=== PATIENT | male | born 1975 | race Two or more races ===

== ENCOUNTER 2019-05-06 06:59 | Inpatient (IN) | payer OTHER ==
--- NOTE | 2019-05-06 07:22 | PDOC ---
History of Present Illness - General Chief Complaint: Chest Pain Stated Complaint: PAIN Time Seen by Provider: 05/06/19 07:20 - History of Present Illness Initial Comments: 05/06/19 08:16 44y.o M hx of HIV and Asthma presents to the ED with 2wks of right sided chest pain. He was seen at [facility] at the time and was advised to proceed to the ED for further evaluation and imaging which he did not do. He has also been non- compliant with anti-viral medications. last time he took any medications was 1 month ago. Presenting today, because pain worsened over the last 4 days. Pain is described as squeezing 10/10 pain in his right chest spreading down his right upper arm. Exacerbated by moving his arm or lying on the affected side. He endorses cough productive of white phlegm, night sweats. He denies any hemoptysis, long travel,pleuritic chest pain, unilateral leg swelling, nausea or vomiting. 05/06/19 08:20 Past History - Past Medical History Allergies/Adverse Reactions: Allergies Allergy/AdvReac Type Severity Reaction Status Date / Time No Known Allergies Allergy Verified 05/06/19 07:15 Home Medications: Ambulatory Orders Albuterol Sulfate Inhaler - [Ventolin HFA Inhaler -] 1 - 2 inh PO QID PRN #1 inhaler 04/30/19 Multivitamin,Ther and Minerals [Vitamin and Minerals] 1 each PO DAILY #30 tablet 04/30/19 Acetaminophen [Tylenol .Regular Strength -] 650 mg PO Q6H PRN tablet 05/08/19 Azithromycin [Zithromax] 500 mg PO DAILY #4 tablet 05/08/19 Bictegrav/Emtricit/Tenofov Ala [Biktarvy 50-200-25 mg Tablet] 1 each PO DAILY 30 Days tablet 05/08/19 Cephalexin [Keflex] 500 mg PO BID #8 capsule 05/08/19 Sulfamethoxazole/Trimethoprim [Bactrim DS -] 1 tab PO DAILY #30 tablet 05/08/19 Asthma: No CVA: No COPD: No Diabetes: No Disorders: No HTN: No Hypercholesterolemia: No Psychiatric Problems: Yes (Multiple hospitalizations while incarcerated.) - Immunization History Immunization Up to Date: Yes - Psycho Social/Smoking Cessation Hx Smoking History: Current every day smoker Have you smoked in the past 12 months: Yes Number of Cigarettes Smoked Daily: 3 Cigars Per Day: 0 Information on smoking cessation initiated: Yes Hx Alcohol Use: No Drug/Substance Use Hx: No Substance Use Type: Marijuana Hx Substance Use Treatment: Yes ((+) rehab in intermediate) Review of Systems - Review of Systems Constitutional: Yes: Night Sweats. No: Chills, Fever HEENTM: No: Eye Pain, Blurred Vision Respiratory: No: Cough, Shortness of Breath Cardiac (ROS): Yes: Chest Pain, Chest Tightness ABD/GI: No: Nausea, Vomiting : No: Burning, Dysuria Musculoskeletal: No: Back Pain Integumentary: No: Bruising, Change in Color Neurological: No: Headache, Numbness *Physical Exam - Vital Signs Last Vital Signs Temp Pulse Resp BP Pulse Ox 98.4 F 110 H 18 112/71 100 05/06/19 07:09 05/06/19 07:09 05/06/19 07:09 05/06/19 07:09 05/06/19 07:09 - Physical Exam 05/06/19 08:25 PE: GENERAL: Awake, alert, and fully oriented, in no acute distress HEAD: No signs of trauma, normocephalic, atraumatic EYES: PERRLA, EOMI, sclera anicteric, conjunctiva clear ENT: Auricles normal inspection, hearing grossly normal, nares patent, oropharynx clear without exudates. Moist mucosa NECK: Normal ROM, supple, JVD, or masses LUNGS: No distress, speaks full sentences, decreased breath sounds at lung bases , occasional faint crackles at bases HEART: tachycardic, normal S1 and S2, no murmurs, rubs or gallops, peripheral pulses normal and equal bilaterally. ABDOMEN: Soft, nontender, normoactive bowel sounds. No guarding, no rebound. No masses EXTREMITIES : Normal inspection, Normal range of motion, no edema. No clubbing or cyanosis NEUROLOGICAL: Cranial nerves II through XII grossly intact. Normal speech, normal gait, no focal sensorimotor deficits SKIN: Warm, Dry, normal turgor, no rashes or lesions noted ED Treatment Course - LABORATORY CBC & Chemistry Diagram: 05/08/19 07:05 05/08/19 07:05 Medical Decision Making - Medical Decision Making 05/06/19 08:31 44y.o M hx of HIV and Asthma presents to the ED with 2wks of right sided chest pain. cbc, cmp, troponin, ekg, 05/06/19 09:53 Pt reassesed feeling better will send for Chest Ct also awaiting ID consult. EKG: nsr, incomplete right bundle branch block, left axis deviation 05/06/19 11:57 CXR no evidence of active pulmonary disease no infiltrate, atelactasis, Discharge - Discharge Information Problems reviewed: Yes Clinical Impression/Diagnosis: Human immunodeficiency virus [HIV] disease, AIDS Condition: Improved Disposition: HOME - Follow up/Referral - Patient Discharge Instructions - Post Discharge Activity
[2019-05-06] MEDS ORDERED: SODIUM CHLORIDE 0.9% 500 ML INFUS.BAG IV ONE (07:57)
[2019-05-06] MEDS ORDERED: ACETAMINOPHEN INJECTION 100 ML IVPB ONE (08:14)
[2019-05-06 08:42] LABS: BASO % 0.5 % (0-2.0); EOS % 1.9 % (0-4.5); HEMATOCRIT 35.9 % (35.4-49); LYMPH % 27.3 % (8-40); MCH 30.2 pg (25.7-33.7); MCHC 33.3 g/dl (32.0-35.9); MEAN CELL VOLUME 90.4 fl (80-96); MEAN PLT VOLUME 8.7 fl (7.5-11.1); NEUT % 58.3 % (42.8-82.8); PLATELET COUNT 132 K/MM3 (134-434); RBC 3.97 M/mm3 (4.00-5.60); RDW 15.3 % (11.9-15.9); WHITE BLOOD COUNT 4.7 K/mm3 (4.0-10.0)
--- NOTE | 2019-05-06 09:05 | EKG ---
Test Reason : Blood Pressure : / mmHG Vent. Rate : 085 BPM Atrial Rate : 085 BPM P-R Int : 164 ms QRS Dur : 104 ms QT Int : 370 ms P-R-T Axes : 080 -58 075 degrees QTc Int : 440 ms NORMAL SINUS RHYTHM LEFT AXIS DEVIATION INCOMPLETE RIGHT BUNDLE BRANCH BLOCK ABNORMAL ECG WHEN COMPARED WITH ECG OF 29-APR-2019 13:34, NO SIGNIFICANT CHANGE WAS FOUND Confirmed by Abdullahi Palacios MD ([id number]) on 05/06/2019 9:05:35 AM Referred By: Confirmed By:Abdullahi Palacios MD
[2019-05-06 09:12] LABS: ALBUMIN 2.9 g/dl (3.4-5.0); ALK PHOS 92 U/L (45-117); ANION GAP 6 MMOL/L (8-16); BILIRUBIN,TOTAL 0.3 mg/dL (0.2-1); BLOOD UREA NITROGEN 10.7 mg/dL (7-18); CALCIUM 8.5 mg/dL (8.5-10.1); CHLORIDE 105 mmol/L (98-107); CO2 28 mmol/L (21-32); CREATININE 1.2 mg/dL (0.55-1.3); GLUCOSE,RANDOM 73 mg/dL (74-106); SGOT/AST 24 U/L (15-37); SGPT/ALT 16 U/L (13-61); SODIUM 139 mmol/L (136-145)
--- NOTE | 2019-05-06 09:33 | PDOC ---
Attending Attestation - Resident Resident Name: Ariadna Troy - ED Attending Attestation I have performed the following: I have examined & evaluated the patient, The case was reviewed & discussed with the resident, I agree w/resident's findings & plan - HPI HPI: 05/06/19 09:28 44-year-old male with history of HIV/AIDS known immunosuppressed with last CD4 57 followed at the [facility], obstacles to care include depression in the past now off medication presents with cough and chills with progressive substernal and right-sided chest discomfort, seen at [facility] last week and encouraged to come to the emergency department but refused, EKG at that time was within normal limits but did not follow-up for chest x-ray. Presents now for persistent symptoms. - Physicial Exam PE: 05/06/19 09:29 Tachycardia at triage, but resolved on my examination O2 sat within normal limits, afebrile Seated comfortably in stretcher speaking on his cell phone Oropharynx clear, neck supple Heart is regular without murmur Decreased breath sounds at the right base with some crackles, otherwise good air entry without wheezing Abdomen benign No edema - Medical Decision Making 05/06/19 09:30 44-year-old male immunosuppressed HIV/AIDS with progressive chills and cough and focally decreased breath sounds at the right base, non-compliant with meds. concern for pna v. pcp, no sirs/sepsis at this time. labs, cultures cxr, ekg pain meds dispo accordinly after discussion with [facility] team Heart Score/ECG Review #1 ECG reviewed & interpreted by me at: 07:47 General ECG Interpretation: Sinus Rhythm, Normal Rate (85), Normal Intervals ( qtc 440, irbbb with qrs 104), No acute ischemic changes
[2019-05-06 13:04] LABS: EPI CELLS 2.1 /HPF (0-5/HPF); HYALINE CASTS 2 /lpf (0-8); URINE APPEARANCE CLEAR; URINE BACTERIA 16.3 /hpf (NEGATIVE); URINE BILIRUBIN NEGATIVE (NEGATIVE); URINE COLOR YELLOW; URINE GLUCOSE (UA) NEGATIVE (NEGATIVE); URINE KETONE NEGATIVE (NEGATIVE); URINE LEUK ESTERASE NEGATIVE (NEGATIVE); URINE NITRITE NEGATIVE (NEGATIVE); URINE PROTEIN 2+ (NEGATIVE); URINE RBC 1 /hpf (0-4); URINE WBC 4 /hpf (0-5)
--- NOTE | 2019-05-06 13:20 | HP ---
<Roderick Flores - Last Filed: 05/07/19 04:18> CHIEF COMPLAINT: PCP: HISTORY OF PRESENT ILLNESS: ER course was notable for: (1) (2) (3) Recent Travel: PAST MEDICAL HISTORY: PAST SURGICAL HISTORY: Social History: Smoking: Alcohol: Drugs: Allergies No Known Allergies Allergy (Verified 05/06/19 07:15) HOME MEDICATIONS: Home Medications Medication Instructions Recorded Clotrimazole [Clotrimazole AF] 1 applic TP BID #30 cream..g. 02/21/19 Albuterol Sulfate Inhaler - 1 - 2 inh PO QID PRN #1 inhaler 04/30/19 [Ventolin HFA Inhaler -] Bictegrav/Emtricit/Tenofov Ala 1 each PO DAILY #30 tablet 04/30/19 [Biktarvy 50-200-25 mg Tablet] Multivitamin,Ther and Minerals 1 each PO DAILY #30 tablet 04/30/19 [Vitamin and Minerals] Sulfamethoxazole/Trimethoprim 1 tab PO DAILY #30 tablet 04/30/19 [Bactrim Ds -] REVIEW OF SYSTEMS CONSTITUTIONAL: Absent: fever, chills, diaphoresis, generalized weakness, malaise, loss of appetite, weight change HEENT: Absent: rhinorrhea, nasal congestion, throat pain, throat swelling, difficulty swallowing, mouth swelling, ear pain, eye pain, visual changes CARDIOVASCULAR: Absent: chest pain, syncope, palpitations, irregular heart rate, lightheadedness , peripheral edema RESPIRATORY: Absent: cough, shortness of breath, dyspnea with exertion, orthopnea, wheezing, stridor, hemoptysis GASTROINTESTINAL: Absent: abdominal pain, abdominal distension, nausea, vomiting, diarrhea, constipation, melena, hematochezia GENITOURINARY: Absent: dysuria, frequency, urgency, hesitancy, hematuria, flank pain, genital pain MUSCULOSKELETAL: Absent: myalgia, arthralgia, joint swelling, back pain, neck pain SKIN: Absent: rash, itching, pallor HEMATOLOGIC/IMMUNOLOGIC: Absent: easy bleeding, easy bruising, lymphadenopathy, frequent infections ENDOCRINE: Absent: unexplained weight gain, unexplained weight loss, heat intolerance, cold intolerance NEUROLOGIC: Absent: headache, focal weakness or paresthesias, dizziness, unsteady gait, seizure, mental status changes, bladder or bowel incontinence PSYCHIATRIC: Absent: anxiety, depression, suicidal or homicidal ideation, hallucinations. PHYSICAL EXAMINATION Vital Signs - 24 hr 05/06/19 05/06/19 05/06/19 07:09 15:30 23:04 Temperature 98.4 F 98.8 F 98.3 F Pulse Rate 110 H 77 Pulse Rate [ 72 Left Apical] Respiratory 18 20 17 Rate Blood Pressure 112/71 110/69 Blood Pressure 128/84 [Left Arm] O2 Sat by Pulse 100 97 96 Oximetry (%) 05/07/19 00:00 Temperature 98.6 F Pulse Rate 74 Pulse Rate [ Left Apical] Respiratory 18 Rate Blood Pressure 118/61 Blood Pressure [Left Arm] O2 Sat by Pulse Oximetry (%) GENERAL: Awake, alert, and fully oriented, in no acute distress. HEAD: Normal with no signs of trauma. EYES: Pupils equal, round and reactive to light, extraocular movements intact, sclera anicteric, conjunctiva clear. No lid lag. EARS, NOSE, THROAT: Ears normal, nares patent, oropharynx clear without exudates. Moist mucous membranes. NECK: Normal range of motion, supple without lymphadenopathy, JVD, or masses. LUNGS: Breath sounds equal, clear to auscultation bilaterally. No wheezes, and no crackles. No accessory muscle use. HEART: Regular rate and rhythm, normal S1 and S2 without murmur, rub or gallop. ABDOMEN: Soft, nontender, not distended, normoactive bowel sounds, no guarding, no rebound, no masses. No hepatomegaly or splenomegaly. MUSCULOSKELETAL: Normal range of motion at all joints. No bony deformities or tenderness. No CVA tenderness. UPPER EXTREMITIES: 2+ pulses, warm, well-perfused. No cyanosis. No clubbing. No peripheral edema. LOWER EXTREMITIES: 2+ pulses, warm, well-perfused. No calf tenderness. No peripheral edema. NEUROLOGICAL: Cranial nerves II-XII intact. Normal speech. Normal gait. PSYCHIATRIC: Cooperative. Good eye contact. Appropriate mood and affect. SKIN: Warm, dry, normal turgor, no rashes or lesions noted, normal capillary refill. Laboratory Results - last 24 hr 05/06/19 05/06/19 05/06/19 08:01 08:02 08:02 WBC 4.7 RBC 3.97 L Hgb 12.0 Hct 35.9 MCV 90.4 MCH 30.2 MCHC 33.3 RDW 15.3 Plt Count 132 L MPV 8.7 Absolute Neuts (auto) 2.7 Neutrophils % 58.3 Lymphocytes % 27.3 D Monocytes % 12.0 H Eosinophils % 1.9 Basophils % 0.5 Nucleated RBC % 0 Sodium 139 Potassium 4.0 Chloride 105 Carbon Dioxide 28 Anion Gap 6 L BUN 10.7 Creatinine 1.2 Est GFR (CKD-EPI)AfAm 85.92 Est GFR (CKD-EPI)NonAf 74.14 Random Glucose 73 L Calcium 8.5 Total Bilirubin 0.3 AST 24 ALT 16 Alkaline Phosphatase 92 Troponin I < 0.02 Total Protein 8.0 Albumin 2.9 L Urine Color Urine Appearance Urine pH Ur Specific [place] Urine Protein Urine Glucose (UA) Urine Ketones Urine Blood Urine Nitrite Urine Bilirubin Urine Urobilinogen Ur Leukocyte Esterase Urine WBC (Auto) Urine RBC (Auto) Urine Casts (Auto) U Epithel Cells (Auto) Urine Bacteria (Auto) Influenza A (Rapid) Negative Influenza B (Rapid) Negative 05/06/19 12:45 WBC RBC Hgb Hct MCV MCH MCHC RDW Plt Count MPV Absolute Neuts (auto) Neutrophils % Lymphocytes % Monocytes % Eosinophils % Basophils % Nucleated RBC % Sodium Potassium Chloride Carbon Dioxide Anion Gap BUN Creatinine Est GFR (CKD-EPI)AfAm Est GFR (CKD-EPI)NonAf Random Glucose Calcium Total Bilirubin AST ALT Alkaline Phosphatase Troponin I Total Protein Albumin Urine Color Yellow Urine Appearance Clear Urine pH 7.0 Ur Specific [place] 1.014 Urine Protein 2+ H Urine Glucose (UA) Negative Urine Ketones Negative Urine Blood Negative Urine Nitrite Negative Urine Bilirubin Negative Urine Urobilinogen 1.0 Ur Leukocyte Esterase Negative Urine WBC (Auto) 4 Urine RBC (Auto) 1 Urine Casts (Auto) 2 U Epithel Cells (Auto) 2.1 Urine Bacteria (Auto) 16.3 Influenza A (Rapid) Influenza B (Rapid) ASSESSMENT/PLAN: ATTENDING PHYSICIAN STATEMENT I saw and evaluated the patient. I reviewed the resident's note and discussed the case with the resident. I agree with the resident's findings and plan as documented. SUBJECTIVE: OBJECTIVE: ASSESSMENT AND PLAN: <Aspen Moore - Last Filed: 05/07/19 06:54> Hospitalist medicine Admission 44 y/o M with PMH HIV (noncompliant with Biktarvy, ?on bactrim for PPX, last CD4 count 50's, VL ~700,000), asthma, COPD, who presents to the ED c/w two weeks cough, and chest pain. States the pain is mid-sternal and without radiation. Hurts when he speaks and is a 6/10, dull pain. Pt went to the [place] [facility] to his PMD and was told to come to the ED for further evaluation. Was unable to come in for the past two weeks. Denies other sx; no PEGUERO, fever, chills , SOB or changes in urinary or bowel function. Lives alone. Stopped taking Biktarvy 1 month ago because he needs his mother to help him take it, and she is currently traveling. Denies being rx bactrim for PPX, however listed in [facility] meds. Unsure whether he has had sick contacts, since he works in a [employer]. PMH: as above PsxH: none meds: denies any meds, only Biktarvy allergies: NKDA FH: denies SH: works in a [employer], active smoker 5 cigs/day, used to smoke 1 ppd "for many yrs." denies alcohol or drug use Allergies No Known Allergies Allergy (Verified 05/06/19 07:15) HOME MEDICATIONS: Home Medications Albuterol Sulfate Inhaler - 1 - 2 inh PO QID PRN #1 inhaler 04/30/19 [Ventolin HFA Inhaler -] Bictegrav/Emtricit/Tenofov Ala 1 each PO DAILY #30 tablet 04/30/19 [Biktarvy 50-200-25 mg Tablet] Sulfamethoxazole/Trimethoprim 1 tab PO DAILY #30 tablet 04/30/19 [Bactrim Ds -] pt denies PHYSICAL EXAMINATION Vital Signs - 24 hr 05/06/19 07:09 Temperature 98.4 F Pulse Rate 110 H Respiratory 18 Rate Blood Pressure 112/71 O2 Sat by Pulse 100 Oximetry (%) General: resting in bed, in NAD HEENT: NCAT, PERRLA, no oral ulcers or thrush noted Cardio: S1, S2 RRR. no r/m/g Pulm: +poor insp effort, however CTA. no rhonchi or crackles Abdomen: soft, nontender, nondistended LE: 2+ pulses, no edema Neuro: director of database marketing 2-12 grossly intact Laboratory Results - last 24 hr 05/06/19 05/06/19 05/06/19 08:01 08:02 08:02 WBC 4.7 RBC 3.97 L Hgb 12.0 Hct 35.9 MCV 90.4 MCH 30.2 MCHC 33.3 RDW 15.3 Plt Count 132 L MPV 8.7 Absolute Neuts (auto) 2.7 Neutrophils % 58.3 Lymphocytes % 27.3 D Monocytes % 12.0 H Eosinophils % 1.9 Basophils % 0.5 Nucleated RBC % 0 Sodium 139 Potassium 4.0 Chloride 105 Carbon Dioxide 28 Anion Gap 6 L BUN 10.7 Creatinine 1.2 Est GFR (CKD-EPI)AfAm 85.92 Est GFR (CKD-EPI)NonAf 74.14 Random Glucose 73 L Calcium 8.5 Total Bilirubin 0.3 AST 24 ALT 16 Alkaline Phosphatase 92 Troponin I < 0.02 Total Protein 8.0 Albumin 2.9 L Urine Color Urine Appearance Urine pH Ur Specific [place] Urine Protein Urine Glucose (UA) Urine Ketones Urine Blood Urine Nitrite Urine Bilirubin Urine Urobilinogen Ur Leukocyte Esterase Urine WBC (Auto) Urine RBC (Auto) Urine Casts (Auto) U Epithel Cells (Auto) Urine Bacteria (Auto) Influenza A (Rapid) Negative Influenza B (Rapid) Negative 05/06/19 12:45 WBC RBC Hgb Hct MCV MCH MCHC RDW Plt Count MPV Absolute Neuts (auto) Neutrophils % Lymphocytes % Monocytes % Eosinophils % Basophils % Nucleated RBC % Sodium Potassium Chloride Carbon Dioxide Anion Gap BUN Creatinine Est GFR (CKD-EPI)AfAm Est GFR (CKD-EPI)NonAf Random Glucose Calcium Total Bilirubin AST ALT Alkaline Phosphatase Troponin I Total Protein Albumin Urine Color Yellow Urine Appearance Clear Urine pH 7.0 Ur Specific [place] 1.014 Urine Protein 2+ H Urine Glucose (UA) Negative Urine Ketones Negative Urine Blood Negative Urine Nitrite Negative Urine Bilirubin Negative Urine Urobilinogen 1.0 Ur Leukocyte Esterase Negative Urine WBC (Auto) 4 Urine RBC (Auto) 1 Urine Casts (Auto) 2 U Epithel Cells (Auto) 2.1 Urine Bacteria (Auto) 16.3 Influenza A (Rapid) Influenza B (Rapid) Imaging EKG: NSR, incomplete RBBB, qtc ~440ms, no acute st-t wave changes. similar to previous CXR: without acute path chest CT: LLL infiltrate, mild nonspecific lymphadenopathy. f/u repeat CT . prominent bilateral axillary lymph nodes ASSESSMENT/PLAN: 44 y/o M with PMH HIV (noncompliant with Biktarvy, ?on bactrim for PPX, last CD4 count 50's, VL ~700,000), asthma, COPD, who presents to the ED c/w two weeks cough, and chest pain. #PNA in setting of HIV, CD4 50's -r/o PCP PNA -f/u fungitel, sputum cx, blood cx, ucx, UA -CXR without acute pathology -chest CT: LLL infiltrate, mild nonspecific lymphadenopathy -will start on cef, zithro -c/w bactrim for PPX -without increased 02 requirements -may need to start to tx empirically, will await ID recs -ID: Dr. Magaña #HIV, CD4 50 -was on bactrim for PPX per [facility] charts -has been noncompliant -may require PPX against toxo, CMV, etc. -will restart Biktarvy per ID recs -without current sx of thrush -f/u hep serologies -ID on board: Dr. Magaña #asthma/COPD -c/w nebs PRN -smoking cessation. counseled, pt not interested in patch currently #F/E/N not requiring IVF at this time continue to follow lytes reg diet #PPX DVT: SCD's #Dispo admit to med-surg Visit type - Emergency Visit Emergency Visit: Yes ED Registration Date: 05/06/19 Care time: The patient presented to the Emergency Department on the above date and was hospitalized for further evaluation of their emergent condition. - New Patient This patient is new to me today: No - Critical Care Critical Care patient: No
[2019-05-06] MEDS ORDERED: ALBUTEROL SO4 8 GM HFA INHALER IH PRN (13:29)
[2019-05-06] MEDS ORDERED: AZITHROMYCIN IVPB 500 MG/250 ML BAG IVPB ONE (15:08)
[2019-05-06] MEDS ORDERED: CEFTRIAXONE 1 GM/50 ML BAG ONE (15:08)
[2019-05-06] MEDS: CEFTRIAXONE 1 GM in DEXTROSE 5%-WATER - 50 ML IVPB SCH (15:10)
[2019-05-06] MEDS: AZITHROMYCIN IVPB 500 MG/250 ML BAG IVPB SCH (15:20)
--- NOTE | 2019-05-06 16:22 | PN ---
Progress Note (short form) - Note Progress Note: ID consult dictated imp/reccd 44 yo man with AIDS- not adherent with meds last cd4 -72 from 05/15- admitted with chest pain and cough found on ct scan to have LLL pneumonia +smoker not sure if his family/significant other is aware of his HIV status quantiferon October 2018 is negative would agree with treatment for CAP- rocephin/zith cultures, urinary antigens, sputum culture AIDS- can resume bactrim for pcp prophylaxis, will d/w patient in am if he wishes to resume biktarvy d/w hospitalist service Problem List - Problems (1) Pneumonia Code(s): J18.9 - PNEUMONIA, UNSPECIFIED ORGANISM (2) AIDS Code(s): B20 - HUMAN IMMUNODEFICIENCY VIRUS [HIV] DISEASE
[2019-05-06] MEDS: SULFAMETHOXAZOLE/TRIMETHOPRIM 800MG/160MG D.S. TABLET PO SCH (16:43)
[2019-05-06 23:12] VITALS: BMI 20.9
[2019-05-07 08:19] LABS: BASO % 0.7 % (0-2.0); EOS % 3.8 % (0-4.5); HEMATOCRIT 33.7 % (35.4-49); HEMOGLOBIN 11.5 GM/dL (11.7-16.9); LYMPH % 30.2 % (8-40); MCH 30.7 pg (25.7-33.7); MCHC 34.3 g/dl (32.0-35.9); MEAN CELL VOLUME 89.7 fl (80-96); MEAN PLT VOLUME 8.5 fl (7.5-11.1); MONO % 11.7 % (3.8-10.2); NEUT % 53.6 % (42.8-82.8); PLATELET COUNT 120 K/MM3 (134-434); RBC 3.75 M/mm3 (4.00-5.60); RDW 15.2 % (11.9-15.9); WHITE BLOOD COUNT 2.6 K/mm3 (4.0-10.0)
[2019-05-07] MEDS ORDERED: ACETAMINOPHEN 325 MG TABLET (FP) PO PRN (08:46)
[2019-05-07 08:51] LABS: BLOOD UREA NITROGEN 10.3 mg/dL (7-18); CALCIUM 8.2 mg/dL (8.5-10.1); MAGNESIUM 1.9 mg/dL (1.8-2.4); PHOSPHOROUS 2.8 mg/dL (2.5-4.9); POTASSIUM 3.8 mmol/L (3.5-5.1)
[2019-05-07] MEDS ORDERED: DEXTROSE 5%-WATER - 50 ML IVPB ONE (08:51)
[2019-05-07] MEDS ORDERED: cefTRIAXone SODIUM 1 GM VIAL ONE (08:51)
[2019-05-07] MEDS: AZITHROMYCIN IVPB 500 MG/250 ML BAG IVPB SCH (09:31)
[2019-05-07] MEDS: SULFAMETHOXAZOLE/TRIMETHOPRIM 800MG/160MG D.S. TABLET PO SCH (09:31)
[2019-05-07] MEDS: CEFTRIAXONE 1 GM in DEXTROSE 5%-WATER - 50 ML IVPB SCH (09:31)
--- NOTE | 2019-05-07 11:12 | CON.PSY ---
Psychiatry Consult Chief Complaint: 44 Katerina old male admitted with chest pain, being treated for Pneumonia. History of AIDS. seen for Psych consult. Patient refused to talk , said he took Xanax in the streets. refusing any meds like REmeron for Depression , sleep and appetite. Symptoms: reports: Appetite Disturbance, Irritability - Previous Psychiatric Treatment Outpatient: None Inpatient: None - Previous Substance Abuse Treatment Outpatient: More than 6 mos ago - Reason for Previous Treatment Reason for Previous Treatment: Drug Abuse - Current Medications Current Medications: Active Medications Acetaminophen (Tylenol -) 650 mg PO Q6H PRN PRN Reason: FEVER Last Admin: 05/07/19 09:31 Dose: 650 mg Albuterol Sulfate (Ventolin Hfa Inhaler -) 1 puff IH Q6H PRN PRN Reason: shortness of breath Ceftriaxone Sodium 1 gm/ (Dextrose) 50 mls @ 100 mls/hr IVPB DAILY [facility] Last Admin: 05/07/19 09:31 Dose: 100 mls/hr Azithromycin (Zithromax 500mg Ivpb (Pre-Docked)) 500 mg in 250 mls @ 250 mls/ hr IVPB DAILY [facility] Last Admin: 05/07/19 09:31 Dose: 250 mls/hr Trimethoprim/Sulfamethoxazole (Bactrim Ds -) 1 each PO DAILY [facility] Last Admin: 05/07/19 09:31 Dose: 1 each - Allergies Allergies: Allergies Allergy/AdvReac Type Severity Reaction Status Date / Time No Known Allergies Allergy Verified 05/06/19 07:15 - Current Living Status Usual Living Arrangement: Alone - Current Mental Status Evaluation Appearance: Disheveled Attitude: Guarded - Affect Affect: Constrictive Appropriateness: Appropriate to Content - Mood Mood: Irritable - Speech/Language Expressive: Coherent - Psychomotor Activity Psychomotor Activity: Slowed - Thought Process Thought Process: Intact - Thought Content Hallucinations: Absent Delusions: Absent - Self Perception Self Perception: No Impairment - Cognition Attention: Alert Orientation: Time Memory, Immediate Recall: Intact Memory, Short Term: 3/3 Memory, Remote with Promptin/3 - Concentration Serial Sevens Intact: No Simple Calculations Intact: Yes - Abstraction Proverb Interpretation: Intact Judgement: Minimally Impaired - Insight Insight: Intact - Impulse Control Impulse Control: Good Control - Suicidal Ideation Suicidal Ideation: No - Homicidal Ideation Homicidal Ideation: No Assessment/Plan 1) Refusing Remeron which might help with sleep and appetite and depression. 2) Patient is not suicidal at this time. 3) return to [facility] when medically stable.
--- NOTE | 2019-05-07 11:30 | PN ---
Progress Note (short form) - Note Progress Note: Hospitalist Medicine Resting in bed, napping. Febrile to 100.4F this AM Vitals 05/07/19 05/07/19 05/07/19 08:30 09:00 11:06 Temperature 98.3 F Respiratory 18 Rate Blood Pressure 110/79 O2 Sat by Pulse 95 Oximetry (%) Physical Exam General: resting in bed, in NAD HEENT: NCAT, PERRLA, no oral ulcers or thrush noted Cardio: S1, S2 RRR. no r/m/g Pulm: CTA b/l. no rhonchi, crackles or wheezes. 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 grossly intact Laboratory Tests 05/06/19 05/06/19 05/07/19 08:01 16:15 07:38 WBC Hgb Hct Plt Count Sodium Potassium Chloride Carbon Dioxide BUN Creatinine Est GFR (CKD-EPI)NonAf Hep A IgM Ab Confirm Pending Hep Bs Antigen Pending Hep B Core IgM Ab Pending Hepatitis C Ab (EIA) Pending Influenza A (Rapid) Negative Influenza B (Rapid) Negative Beta-(1,3)-D-Glucan Pending 05/07/19 05/07/19 07:38 07:38 WBC 2.6 L Hgb 11.5 L Hct 33.7 L Plt Count 120 L Sodium 139 Potassium 3.8 Chloride 108 H Carbon Dioxide 26 BUN 10.3 Creatinine 1.0 Est GFR (CKD-EPI)NonAf 92.42 Hep A IgM Ab Confirm Hep Bs Antigen Hep B Core IgM Ab Hepatitis C Ab (EIA) Influenza A (Rapid) Influenza B (Rapid) Beta-(1,3)-D-Glucan Microbiology 05/06/19 12:45 Urine For Antigen Detection Legionella Antigen - Final 05/06/19 12:45 Urine For Antigen Detection Streptococcus pneumoniae Antigen (M - Final 05/06/19 12:45 Urine - Urine Clean Catch Urine Culture - Preliminary Proteus Species 05/06/19 12:45 Serum Legionella Serology - Preliminary 05/06/19 10:22 Blood - Peripheral Venous Blood Culture - Preliminary NO GROWTH OBTAINED AFTER 24 HOURS, INCUBATION TO CONTINUE FOR 4 DAYS. 05/06/19 10:22 Blood - Peripheral Venous Blood Culture - Preliminary NO GROWTH OBTAINED AFTER 24 HOURS, INCUBATION TO CONTINUE FOR 4 DAYS. Imaging EKG: NSR, incomplete RBBB, qtc ~440ms, no acute st-t wave changes. similar to previous CXR: without acute path chest CT: LLL infiltrate, mild nonspecific lymphadenopathy. f/u repeat CT . prominent bilateral axillary lymph nodes ASSESSMENT/PLAN: 44 y/o M with PMH HIV (noncompliant with Biktarvy, ?on bactrim for PPX, last CD4 count 50's, VL ~700,000), asthma, COPD, who presents to the ED c/w two weeks cough, and chest pain. #PNA in setting of HIV, CD4 50's -r/o PCP PNA -f/u fungitel, sputum cx, blood cx, ucx, UA -chest CT: LLL infiltrate, mild nonspecific lymphadenopathy -on cef, zithro (Day2) -c/w bactrim for PPX -without increased 02 requirements -started back on Biktarvy, will await ID recs -ID: Dr. Magaña #HIV, CD4 50 -restarted on Biktarvy -f/u hep serologies - pending -ID on board: Dr. Magaña #Depression -seen by psych, recommended remeron - pt refused -Psych : Dr. Real #asthma/COPD -c/w nebs PRN -smoking cessation. counseled, pt not interested in patch #F/E/N not requiring IVF at this time continue to follow lytes reg diet #PPX DVT: SCD's #Dispo monitoring on med-surg on IV abx will f/u at the [facility] on d/c
--- NOTE | 2019-05-07 15:26 | PN ---
Progress Note (short form) - Note Progress Note: feels improved less cough no chest pain Vital Signs Period Temp Pulse Resp BP Sys/Goldstein Pulse Ox Last 24 Hr 97.8 F-100.4 F 68-83 17-20 103-132/60-84 95-97 cor-rrr lungs clear abd soft,nt ext no edema CBC, BMP 05/07/19 07:38 05/07/19 07:38 Microbiology 05/07/19 06:40 Sputum - Expectorated Gram Stain - Final 05/06/19 12:45 Serum Legionella Serology - Preliminary 05/06/19 12:45 Urine For Antigen Detection Legionella Antigen - Final 05/06/19 12:45 Urine For Antigen Detection Streptococcus pneumoniae Antigen (M - Final 05/06/19 10:22 Blood - Peripheral Venous Blood Culture - Preliminary NO GROWTH OBTAINED AFTER 24 HOURS, INCUBATION TO CONTINUE FOR 4 DAYS. 05/06/19 10:22 Blood - Peripheral Venous Blood Culture - Preliminary NO GROWTH OBTAINED AFTER 24 HOURS, INCUBATION TO CONTINUE FOR 4 DAYS. 05/06/19 12:45 Urine - Urine Clean Catch Urine Culture - Preliminary Proteus Species a/p pneumonia- continue rocephin/zithromax day #2 hiv- can resume bactrim for pcp prophylaxis, wishes to resume biktarvy he will f/u at [facility] after discharge
--- NOTE | 2019-05-07 17:29 | CONS ---
DATE OF CONSULTATION: DATE OF DICTATION: 05/07/2019 INFECTIOUS DISEASE CONSULTATION REQUESTING PHYSICIAN: Hospitalist Service. CONSULTING PHYSICIAN: Mila Oviedo MD HISTORY OF PRESENT ILLNESS: This is a 44-year-old man with HIV who comes for intermittent followup at the [facility], as well as with his Bactrim. Last CD4 count was 72 on April 29, 2019, when he showed up for clinic complaining of chest pain. He refused to stay or be evaluated in the emergency room. He returns to the ER on May 06 with complaints again of chest discomfort without radiation. He notes he has a cough that he has had intermittently for the last 1-2 weeks. He has had no fevers or chills, and he lives alone. He works in a [employer]. There is no history of any recent travel. PAST MEDICAL HISTORY: He was diagnosed with HIV in 2005. He has a past history of, he has never had any surgery. FAMILY HISTORY: Notable for diabetes in his mother and a brother with anemia. SOCIAL HISTORY: He uses cigarettes, and he has bought Xanax on the streets. REVIEW OF SYSTEMS: He denies diarrhea, nausea, vomiting. His appetite he says is fair, he has not had weight loss. PHYSICAL EXAMINATION: Vital Signs: His T-max is 100.4, current temperature is 97.8, pulse of 83, blood pressure 103/60, respiratory rate 18, he is saturating 95% on room air. HEENT: Normocephalic. Eyes are anicteric. He has no thrush. Lungs: Diminished breath sounds at the bases. Heart: Regular rate and rhythm. Abdomen: Soft, nontender. Extremities: Without edema. LABORATORY: White count is 4.7, hemoglobin 12, platelets 132. Chemistries: BUN and creatinine are 10 and 1.2 with normal LFTs. Urinalysis on admission was negative. His last T-cell done in clinic was 72 white cells. He reports he has been off his medications at least for a month, and he had a chest CT done in the emergency room that was notable for a left lower lobe infiltrate. IMPRESSION: 1. In summary, this is a 44-year-old man with AIDS, noncompliant with medications, with evidence of a left lower lobe pneumonia consistent with community-acquired. Would obtain urinary antigens to rule out pneumococcal pneumonia, would treat him with ceftriaxone and Zithromax at this time and follow up cultures. 2. Regarding his acquired immunodeficiency syndrome, would resume Bactrim for Pneumocystis pneumonia prophylaxis, and I will speak with the patient about whether he wishes to resume his Biktarvy at this time. Further recommendations to follow. Case was discussed with the hospitalist. MILA OVIEDO M.D. DARRELL/[id number]
[2019-05-08 07:38] LABS: BASO % 0.8 % (0-2.0); EOS % 5.1 % (0-4.5); HEMATOCRIT 35.7 % (35.4-49); HEMOGLOBIN 12.3 GM/dL (11.7-16.9); LYMPH % 38.1 % (8-40); MCH 30.8 pg (25.7-33.7); MCHC 34.4 g/dl (32.0-35.9); MEAN CELL VOLUME 89.5 fl (80-96); MEAN PLT VOLUME 8.4 fl (7.5-11.1); MONO % 12.7 % (3.8-10.2); NEUT % 43.3 % (42.8-82.8); PLATELET COUNT 129 K/MM3 (134-434); RBC 3.99 M/mm3 (4.00-5.60); WHITE BLOOD COUNT 2.8 K/mm3 (4.0-10.0)
[2019-05-08 08:05] LABS: BLOOD UREA NITROGEN 15.4 mg/dL (7-18); CALCIUM 8.4 mg/dL (8.5-10.1); CREATININE 1.2 mg/dL (0.55-1.3); MAGNESIUM 2.3 mg/dL (1.8-2.4); POTASSIUM 4.1 mmol/L (3.5-5.1)
[2019-05-08] MEDS ORDERED: cefTRIAXone SODIUM 1 GM VIAL ONE (08:56)
[2019-05-08] MEDS ORDERED: DEXTROSE 5%-WATER - 50 ML IVPB ONE (08:56)
[2019-05-08] MEDS: CEFTRIAXONE 1 GM in DEXTROSE 5%-WATER - 50 ML IVPB SCH (09:31)
[2019-05-08] MEDS: AZITHROMYCIN IVPB 500 MG/250 ML BAG IVPB SCH (09:32)
[2019-05-08] MEDS: SULFAMETHOXAZOLE/TRIMETHOPRIM 800MG/160MG D.S. TABLET PO SCH (09:32)
[2019-05-08] MEDS ORDERED: BICTEGRAV/EMTRICIT/TENOFOV (BIKTARVY) 50-200-25 MG TABLET PO SCH (10:00)
--- NOTE | 2019-05-08 11:46 | PN ---
Progress Note (short form) - Note Progress Note: Hospitalist Medicine Sitting in bed, without complaint. Vitals 05/08/19 10:00 Temperature 98.2 F Pulse Rate 78 Respiratory 17 Rate Blood Pressure 106/74 Physical Exam General: resting in bed, in NAD. pleasant HEENT: NCAT, PERRLA, no oral ulcers or thrush noted Cardio: S1, S2 RRR. no r/m/g Pulm: CTA b/l. no rhonchi, crackles or wheezes. 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 2-12 grossly intact Laboratory Tests 05/06/19 05/06/19 05/07/19 08:01 16:15 07:38 Hep A IgM Ab Confirm Negative Hep Bs Antigen Negative Hep B Core IgM Ab Negative Hepatitis C Ab (EIA) <0.1 Influenza A (Rapid) Negative Influenza B (Rapid) Negative Beta-(1,3)-D-Glucan Pending Microbiology 05/06/19 12:45 Urine For Antigen Detection Legionella Antigen - Final 05/06/19 12:45 Urine For Antigen Detection Streptococcus pneumoniae Antigen (M - Final 05/06/19 12:45 Urine - Urine Clean Catch Urine Culture - Preliminary Proteus Species 05/06/19 12:45 Serum Legionella Serology - Preliminary 05/06/19 10:22 Blood - Peripheral Venous Blood Culture - Preliminary NO GROWTH OBTAINED AFTER 24 HOURS, INCUBATION TO CONTINUE FOR 4 DAYS. 05/06/19 10:22 Blood - Peripheral Venous Blood Culture - Preliminary NO GROWTH OBTAINED AFTER 24 HOURS, INCUBATION TO CONTINUE FOR 4 DAYS. Imaging EKG: NSR, incomplete RBBB, qtc ~440ms, no acute st-t wave changes. similar to previous CXR: without acute path chest CT: LLL infiltrate, mild nonspecific lymphadenopathy. f/u repeat CT . prominent bilateral axillary lymph nodes ASSESSMENT/PLAN: 44 y/o M with PMH HIV (noncompliant with Biktarvy, ?on bactrim for PPX, last CD4 count 50's, VL ~700,000), asthma, COPD, who presents to the ED c/w two weeks cough, and chest pain. #PNA in setting of HIV, CD4 50's -r/o PCP PNA -f/u fungitel, sputum cx, blood cx, ucx, UA -chest CT: LLL infiltrate, mild nonspecific lymphadenopathy -on cef, zithro (Day3) -c/w bactrim for PPX -without increased 02 requirements -started back on Biktarvy, will await ID recs -ID: Dr. Magaña #HIV, CD4 50 -restarted on Biktarvy -hep serologies (-) -ID on board: Dr. Magaña #Depression -seen by psych, recommended remeron - pt refused -Psych : Dr. Real #asthma/COPD -c/w nebs PRN -smoking cessation. counseled, pt not interested in patch #F/E/N not requiring IVF at this time continue to follow lytes reg diet #PPX DVT: SCD's #Dispo monitoring on med-surg on IV abx lives independently at home will f/u at the [facility] on d/c
[2019-05-08 14:35] VITALS: BP 120/73; PULSE 96; TEMP 98.6
--- NOTE | 2019-05-08 18:28 | DS ---
Physical Exam: SUBJECTIVE: Sitting in bed, without complaint. OBJECTIVE: Vital Signs Period Temp Pulse Resp BP Sys/Goldstein Pulse Ox Last 24 Hr 97.9 F-99.1 F 69-96 17-18 98-120/58-74 95-96 05/08/19 14:34 Temperature 98.6 F Pulse Rate 96 H Respiratory 18 Rate Blood Pressure 120/73 05/06/19 05/07/19 05/07/19 07:09 06:00 08:30 Temperature 98.4 F 98.1 F 100.4 F H 05/07/19 05/07/19 11:06 14:19 Temperature 98.3 F 97.8 F Physical Exam General: resting in bed, in NAD. pleasant HEENT: NCAT, PERRLA, no oral ulcers or thrush noted Cardio: S1, S2 RRR. no r/m/g Pulm: CTA b/l. no rhonchi, crackles or wheezes. 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 2-12 grossly intact LABS Laboratory Results - last 24 hr 05/07/19 05/08/19 05/08/19 07:38 07:05 07:05 WBC 2.8 L RBC 3.99 L Hgb 12.3 Hct 35.7 MCV 89.5 MCH 30.8 MCHC 34.4 RDW 15.0 Plt Count 129 L MPV 8.4 Absolute Neuts (auto) 1.2 L Neutrophils % 43.3 Lymphocytes % 38.1 D Monocytes % 12.7 H Eosinophils % 5.1 H Basophils % 0.8 Nucleated RBC % 0 Sodium 140 Potassium 4.1 Chloride 108 H Carbon Dioxide 27 Anion Gap 4 L BUN 15.4 Creatinine 1.2 Est GFR (CKD-EPI)AfAm 85.92 Est GFR (CKD-EPI)NonAf 74.14 Random Glucose 80 Calcium 8.4 L Phosphorus 3.0 Magnesium 2.3 Hep A IgM Ab Confirm Negative Hep Bs Antigen Negative Hep B Core IgM Ab Negative Hepatitis C Ab (EIA) <0.1 Microbiology 05/07/19 06:40 Sputum - Expectorated Gram Stain - Final 05/06/19 12:45 Urine For Antigen Detection Legionella Antigen - Final 05/06/19 12:45 Urine For Antigen Detection Streptococcus pneumoniae Antigen (M - Final 05/06/19 12:45 Urine - Urine Clean Catch Urine Culture - Final Proteus Species 05/07/19 06:40 Sputum - Expectorated Sputum Culture - Preliminary NORMAL RESPIRATORY JONNA 05/06/19 12:45 Serum Legionella Serology - Preliminary 05/06/19 10:22 Blood - Peripheral Venous Blood Culture - Preliminary NO GROWTH OBTAINED AFTER 48 HOURS, INCUBATION TO CONTINUE FOR 3 DAYS. 05/06/19 10:22 Blood - Peripheral Venous Blood Culture - Preliminary NO GROWTH OBTAINED AFTER 48 HOURS, INCUBATION TO CONTINUE FOR 3 DAYS. Imaging EKG: NSR, incomplete RBBB, qtc ~440ms, no acute st-t wave changes. similar to previous CXR: without acute path chest CT: LLL infiltrate, mild nonspecific lymphadenopathy. f/u repeat CT . prominent bilateral axillary lymph nodes HOSPITAL COURSE: Date of Admission:05/06/19 Date of Discharge: 05/08/19 44 y/o M with PMH HIV (noncompliant with Biktarvy, ?on bactrim for PPX, last CD4 count 50's, VL ~700,000), asthma, COPD, who presents to the ED c/w two weeks cough, and chest pain. #PNA in setting of HIV, CD4 50's -r/o PCP PNA -chest CT: LLL infiltrate, mild nonspecific lymphadenopathy -on cef, zithro (Day3) - sent home on keflex, zithro to complete 7 day course -c/w bactrim for PPX. on d/c as well -without increased 02 requirements -started back on Biktarvy, discussed w pt that it is important to continue. -will f/u at [facility] #HIV, CD4 50 -restarted on Biktarvy -hep serologies (-) #Depression -seen by psych, recommended remeron - pt refused -Psych : Dr. Real #asthma/COPD -c/w nebs PRN -smoking cessation. counseled, pt not interested in patch Minutes to complete discharge: 44 Discharge Summary Problems reviewed: Yes Reason For Visit: ACQUIRED IMMUNODEFICIENCY SYNDROME /HIV INFECTION Condition: Improved - Instructions Diet, Activity, Other Instructions: You were in the hospital because you had pneumonia. You were monitored in the hospital, treated with IV antibiotis, improved and are being sent home. Medications 1. You will need to take the following meds for your pneumonia: keflex 500mg twice a day, for the next 4 days (starting tomorrow) Zithromax 500mg once daily, for the next 4 days (starting tomorrow) 2. You should resume your other medications including bactrim and biktarvy. Follow up appointments It is important that you follow with your primary care doctor, at [facility] ( Yee Ambrosio AGRICULTURAL RESEARCH DIRECTOR)- this upcoming week If you develop a fever, chest pain or shortness of breath, please call your doctor immediately or go to the hospital. Referrals: Yee Ambrosio AGRICULTURAL RESEARCH DIRECTOR [Primary Care Provider] - 05/12/19 Disposition: HOME - Home Medications Comprehensive Discharge Medication List: Ambulatory Orders Albuterol Sulfate Inhaler - [Ventolin HFA Inhaler -] 1 - 2 inh PO QID PRN #1 inhaler 04/30/19 Multivitamin,Ther and Minerals [Vitamin and Minerals] 1 each PO DAILY #30 tablet 04/30/19 Acetaminophen [Tylenol .Regular Strength -] 650 mg PO Q6H PRN tablet 05/08/19 Azithromycin [Zithromax] 500 mg PO DAILY #4 tablet 05/08/19 Bictegrav/Emtricit/Tenofov Ala [Biktarvy 50-200-25 mg Tablet] 1 each PO DAILY 30 Days tablet 05/08/19 Cephalexin [Keflex] 500 mg PO BID #8 capsule 05/08/19 Sulfamethoxazole/Trimethoprim [Bactrim DS -] 1 tab PO DAILY #30 tablet 05/08/19 This patient is new to me today: No Emergency Visit: No Critical Care patient: No - Discharge Referral [facility]erred to [facility] Med [facility] No
== END 2019-05-08 15:39 | disposition home or self-care (01) | DRG 894 ==
LOC: JER 06:59 → SUPCPDRO 06:59 → JERBED 11:36 → J7W 21:16
PROVIDERS: ADMIT Internal Medicine; ATTEND Internal Medicine
DX: B20 Human immunodeficiency virus [HIV] disease (principal); J18.9 Pneumonia, unspecified organism; J45.909 Unspecified asthma, uncomplicated; J44.9 Chronic obstructive pulmonary disease, unspecified; F32.9 Major depressive disorder, single episode, unspecified
CPT/HCPCS: 36415; 71046-TC-FY; 71250-TC; 80048; 80053; 80074; 81003; 83735; 84100; 84484; 85025; 86713; 87040; 87070; 87086; 87205; 87449; 87804; 87899; 93005; 93010; 99283-25